=== PATIENT | male | born 1990 | race Caucasian/White ===

== ENCOUNTER 2016-05-22 10:48 | Emergency (ER) | payer SELFPAY | END 2016-05-22 10:54 | disposition home or self-care (01) | LOC: ER 10:48 | DX: K05.10 Chronic gingivitis, plaque induced (principal); F17.200 Nicotine dependence, unspecified, uncomplicated; J45.909 Unspecified asthma, uncomplicated | CPT/HCPCS: 99283; A9270-GY ==